=== PATIENT | male | born 1950 | race Caucasian/White ===

== ENCOUNTER 2017-06-13 07:07 | Day surgery (SDC) | payer MEDICARE ==
[~2017-06-13] VITALS: Ht 176.5 cm; Wt 139.2 kg
[~2017-06-13 07:07] MED LIST: CYAN1TAB29 PO; GLIM2TAB2 PO; INSU100V8 SQ; LISI-167 PO; METF10002 PO; OXYC-302 PO; SENN1TAB67 PO
[2017-06-13] MEDS ORDERED: MIDAZOLAM 1 MG/ML, 2ML ONE (07:17)
[2017-06-13] MEDS ORDERED: FENTANYL PF 100 MCG/2ML ONE (07:17)
[2017-06-13 07:46] VITALS: BP 120/59
[2017-06-13] MEDS ORDERED: LACTATED RINGERS 1,000 ML IV SCH (07:46)
[2017-06-13 08:35] LABS: ASPARTATE AMINO TRANSFERASE 23 U/L (15-37); BLOOD UREA NITROGEN 12 mg/dL (7-18)
[2017-06-13] MEDS ORDERED: PROPOFOL 10 MG/ML, 20ML ONE (09:27)
[2017-06-13] MEDS ORDERED: SUCCINYLCHOLINE 20 MG/ML, 10ML ONE (09:27)
[2017-06-13] MEDS ORDERED: ONDANSETRON 2MG/ML, 2ML ONE (09:27)
[2017-06-13] MEDS ORDERED: METOCLOPRAMIDE 5 MG/ML, 2ML IV PRN (10:00)
[2017-06-13] MEDS ORDERED: OXYcodone 5 MG/5 ML ORAL.SOL UDC PO PRN (10:00)
[2017-06-13] MEDS ORDERED: ACETAMINOPHEN 325 MG TABLET PO PRN (10:00)
[2017-06-13] MEDS ORDERED: HYDROmorphone 1 MG/ML, 1ML IV PRN (10:00)
[2017-06-13] MEDS ORDERED: LABETALOL 5MG/ML, 20ML IV PRN (10:00)
[2017-06-13] MEDS ORDERED: hydrALAzine 20 MG/ML, 1ML IV PRN (10:00)
[2017-06-13] MEDS ORDERED: ONDANSETRON 2MG/ML, 2ML IVPush PRN (10:00)
[2017-06-13] MEDS ORDERED: FENTANYL PF 100 MCG/2ML IV PRN (10:00)
== END 2017-06-13 11:40 ==
LOC: OUT 07:07
PROVIDERS: ATTEND Internal Medicine Geriatric Medicine
DX: Z09 Encounter for follow-up examination after completed treatment for conditions other than malignant neoplasm (principal); K63.5 Polyp of colon; Z86.010 Personal history of colon polyps; Z80.0 Family history of malignant neoplasm of digestive organs; I10 Essential (primary) hypertension; E11.9 Type 2 diabetes mellitus without complications; F41.9 Anxiety disorder, unspecified; Z87.891 Personal history of nicotine dependence; Z87.39 Personal history of other diseases of the musculoskeletal system and connective tissue
CPT/HCPCS: 36415; 45380; 80053; 82962; 88305; 93005; J0330; J2250; J2405; J2704; J3010; J7120

== ENCOUNTER → 2017-12-01 | Outpatient (CLI) | payer MEDICARE | END | disposition home or self-care (01) | LOC: RAD 14:26 | PROVIDERS: ATTEND Physician Assistant | DX: M23.221 Derangement of posterior horn of medial meniscus due to old tear or injury, right knee (principal); M25.461 Effusion, right knee ==

== ENCOUNTER 2018-10-12 17:11 | Emergency (ER) | payer MEDICARE ==
[~2018-10-12] VITALS: Ht 177.8 cm; Wt 136.5 kg
[2018-10-12 17:32] LABS: MEAN CORPUSCULAR HEMOGLOBIN 30.9 pg (27.5-34.5); MEAN CORPUSCULAR HGB CONC 33.5 g/dL (33.2-36.2); MEAN CORPUSCULAR VOLUME 92.3 fL (81-97); MEAN PLATELET VOLUME 7.3 fL (7.4-10.4); PLATELET COUNT 308 x10^3/uL (130-400); RED BLOOD COUNT 5.87 x10^6/uL (4.38-5.82); RED CELL DISTRIBUTION WIDTH 15.6 % (9.4-14.8)
[2018-10-12 17:56] LABS: ALBUMIN 3.8 g/dL (3.4-5.0); ANION GAP 9 mmol/L (5-15); CALCIUM 9.1 mg/dL (8.5-10.1); CHLORIDE 104 mmol/L (98-107); CREATININE 1.26 mg/dL (0.7-1.3)
[2018-10-12 17:59] LABS: BASOPHILS # (AUTO) 0.01 x10^3/uL (0-0.1); BASOPHILS % (AUTO) 0 % (0-1); EOSINOPHILS # (AUTO) 0.03 x10^3/uL (0-0.4); EOSINOPHILS % (AUTO) 0 % (1-7); LYMPHOCYTES # (AUTO) 1.65 x10^3/uL (1-3.4); LYMPHOCYTES % (AUTO) 9 % (22-44); MD SCAN; MONOCYTES % (AUTO) 4 % (2-9); NEUTROPHILS # (AUTO) 16.45 x10^3/uL (1.8-6.8); NEUTROPHILS % (AUTO) 87 % (42-75)
[2018-10-12] MEDS ORDERED: victoza INJ (18:18)
[2018-10-12] MEDS ORDERED: SITA25TA PO (18:18)
[2018-10-12 19:31] LABS: MICROSCOPIC NOT IND
[2018-10-12 19:34] LABS: CULTURE INDICATED? NO
[2018-10-12] MEDS ORDERED: PINK LADY ENEMA 490 ML BOTTLE PR ONE (20:00)
[2018-10-12 21:20] VITALS: BP 139/75
== END 2018-10-12 21:58 | disposition home or self-care (01) ==
LOC: ED 18:04
DX: K59.00 Constipation, unspecified (principal); R33.9 Retention of urine, unspecified; E11.9 Type 2 diabetes mellitus without complications; I10 Essential (primary) hypertension; Z72.9 Problem related to lifestyle, unspecified
CPT/HCPCS: 36415; 74021; 80048; 81003; 82040; 85025; 99284